=== PATIENT | male | born 1965 | race Caucasian/White ===

== ENCOUNTER 2019-12-11 21:57 | Inpatient (IN) | payer OTHER ==
[~2019-12-11] VITALS: Ht 175.3 cm; Wt 72.5 kg
[~2019-12-11 21:57] MED LIST: ALB5IS NEB; ENO40SY SC; IPR002IS NEB; NICO14DI9 TD
[2019-12-11] MEDS ORDERED: methylPREDNISolone SOD SUCC 125 MG/2 ML VL IV ONE (22:30)
[2019-12-11] MEDS ORDERED: levoFLOXacin 750MG 150 ML IV ONE (22:30)
[2019-12-11] MEDS ORDERED: METOPROLOL TARTRATE 1MG/1ML-5ML VIAL IV SCH (22:45)
[2019-12-11 22:50] LABS: Basophils # (auto) 0.1 10 ^3/uL (0-0.2); Basophils % (auto) 0.6 % (0.0-2.0); Eosinophils # (auto) 0.1 10 ^3/uL (0-0.8); Eosinophils % (auto) 0.6 % (0.0-7.0); Hematocrit 32.9 % (41.0-53.0); Hemoglobin 10.9 g/dL (13.5-17.5); Lymphocytes # (auto) 1.4 10 ^3/uL (0.4-5.4); Lymphocytes % (auto) 9.2 % (10.0-50.0); Mean Corpuscular Hemoglobin 30.9 pg (28.0-32.0); Mean Corpuscular Volume 93.7 fL (80.0-100.0); Monocytes # (auto) 1.2 10 ^3/uL (0-1.3); Monocytes % (auto) 8.1 % (0.0-12.0); Neutrophils # (auto) 12.4 10 ^3/uL (1.6-8.6); Neutrophils % (auto) 81.5 % (37.0-80.0); Platelet Count (auto) 395 10^3/uL (140-450); Red Blood Cells 3.51 10^6/uL (4.5-5.90); Red Cell Distribution Width 12.4 % (11.8-14.3); White Blood Cell 15.2 10^3/uL (4.4-10.8)
[2019-12-11 23:22] LABS: Alanine Aminotransferase 12 U/L (16-61); Albumin 2.5 g/dL (3.4-5.0); Anion Gap 1 (5-15); Aspartate Aminotransferase 40 U/L (15-37); BUN/Creatinine Ratio 14.3; Blood Urea Nitrogen 13 mg/dL (7-18); Calcium 12.6 mg/dL (8.5-10.1); Chloride 88 mmol/L (98-107); GFR African American 112 mL/min; GFR Non-African American 93 mL/min; Glucose 179 mg/dL (74-106); Potassium 3.3 mmol/L (3.5-5.1); Sodium 131 mmol/L (136-145)
[2019-12-11 23:27] LABS: Alkaline Phosphatase 165 U/L (45-117); Bilirubin, Total 0.2 mg/dL (0.2-1.0); Total Protein 10.3 g/dL (6.4-8.2)
[2019-12-11] MEDS ORDERED: LORazepam 2MG/ML-1ML VIAL IV ONE (23:45)
[2019-12-11] MEDS ORDERED: LORazepam 2MG/ML-1ML VIAL ONE (23:46)
[2019-12-12 00:02] LABS: Carbon Dioxide 42 mmol/L (21-32)
[2019-12-12] MEDS ORDERED: LORazepam 2MG/ML-1ML VIAL IV ONE (02:45)
[2019-12-12] MEDS ORDERED: levoFLOXacin 750MG 150 ML IV ONE (04:15)
[2019-12-12] MEDS ORDERED: IPRATROPIUM BROM 0.5 MG/2.5ML INH SOL NEB PRN (05:45)
[2019-12-12] MEDS ORDERED: ONDANSETRON HCL 4 MG/2 ML VIAL IV PRN (05:45)
[2019-12-12] MEDS ORDERED: ALBUTEROL SULF 2.5 MG/0.5ML(0.5%) NEB SOLN NEB PRN (05:45)
[2019-12-12] MEDS ORDERED: HYDROcodone-ACET 5/325MG TAB PO PRN (05:45)
[2019-12-12] MEDS ORDERED: ACETAMINOPHEN 325 MG TAB PO PRN (05:45)
[2019-12-12] MEDS ORDERED: MORPHINE SULFATE 4 MG/ML SYR/VIAL IV PRN (05:45)
[2019-12-12] MEDS ORDERED: DOCUSATE SOD 100 MG CAP PO PRN (05:45)
[2019-12-12] MEDS ORDERED: ALBUTEROL SULF HFA 90MCG INH 200DOSE IN SCH (06:00)
[2019-12-12 06:08] LABS: Basophils # (auto) 0 10 ^3/uL (0-0.2); Basophils % (auto) 0.3 % (0.0-2.0); Eosinophils # (auto) 0 10 ^3/uL (0-0.8); Hematocrit 29.1 % (41.0-53.0); Hemoglobin 9.5 g/dL (13.5-17.5); Lymphocytes # (auto) 0.7 10 ^3/uL (0.4-5.4); Mean Corpuscular Hemoglobin 30.5 pg (28.0-32.0); Mean Corpuscular Hgb Conc. 32.7 g/dL (32.0-36.0); Mean Corpuscular Volume 93.3 fL (80.0-100.0); Monocytes # (auto) 0.1 10 ^3/uL (0-1.3); Monocytes % (auto) 0.6 % (0.0-12.0); Neutrophils % (auto) 94.1 % (37.0-80.0); Platelet Count (auto) 343 10^3/uL (140-450); Red Blood Cells 3.12 10^6/uL (4.5-5.90); Red Cell Distribution Width 12.8 % (11.8-14.3); White Blood Cell 14.9 10^3/uL (4.4-10.8)
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
[2019-12-12 06:22] VITALS: BP 90/55
[2019-12-12] MEDS: SODIUM CHLORIDE 0.9% 1,000 ML IV SCH ×2 (06:28→21:27)
[2019-12-12 06:30] LABS: BUN/Creatinine Ratio 16.1; Calcium 12.2 mg/dL (8.5-10.1); Potassium 3.8 mmol/L (3.5-5.1)
[2019-12-12] MEDS ORDERED: POTASSIUM CHL 20MEQ/100ML 100 ML IV ONE (06:30)
--- NOTE | 2019-12-12 07:00 | NUR ---
PT ASSESSED FOR PRN HHN TX. PT IS ON 3LNC, SPO2 97%, PT SLEEPING AT THIS TIME, NO S.S OF RESPIRATORY DISTRESS. WILL CONTINUE TO MONITOR.
[2019-12-12] MEDS: METOPROLOL TARTRATE 25 MG TAB PO SCH ×2 (10:00→22:00)
[2019-12-12] MEDS: methylPREDNISolone SOD SUCC 125 MG/2 ML VL IV SCH (10:00)
--- NOTE | 2019-12-12 11:00 | NUR ---
FAMILY UPDATED BY PHONE PATIENT ADMITTED TO TELE.
--- NOTE | 2019-12-12 11:17 | NUR ---
ADMISSION ASSESSMENT PATIENT UNABLE TO ANSWER QUESTIONS. ADMISSION ASSESSMENT QUESTIONS ASKED TO MELISSA MONDARGON AT [phone].
[2019-12-12] MEDS ORDERED: HYDR-4833 PO (11:22)
[2019-12-12] MEDS ORDERED: RIS1T PO (11:22)
[2019-12-12] MEDS ORDERED: METO25TA5 PO (11:22)
[2019-12-12] MEDS ORDERED: LORA0.5T12 PO (11:22)
[2019-12-12 12:57] VITALS: BP 88/59
[2019-12-12] MEDS ORDERED: DEXTROSE (50%) 50ML SYRG IV PRN (15:00)
[2019-12-12] MEDS ORDERED: MORPHINE SULF INJ 2 MG/ML SYRINGE 1ML IV PRN (15:00)
--- NOTE | 2019-12-12 15:00 | NUR ---
Lopez catheter insertion Patient assessed and determined to be in need of lopez catheter. Order obtained from MD. Patient educated on catheter and reason for insertion. All questions answered. Lopez catheter 16 Welsh inserted with clean sterile technique. Patient tolerated well.800 CC LIGHT YELLOW URINE DRAINED
--- NOTE | 2019-12-12 16:20 | NUR ---
WOUND CARE NOTE: ORDERED SYNERGY AIR ELITE AIR MATTRESS FOR PATIENT AT THIS TIME. PATIENT TO BE PLACED, PENDING DELIVERY BY LUIS JOSEPH.
[2019-12-12] MEDS: InsuLIN REG 1unit/0.01ml Soln (100units/ml) SC SCH ×2 (17:00→21:27)
[2019-12-12] MEDS: ACCU-CHEK COMFORT CURVE STRIP VI SCH ×2 (17:00→21:27)
[2019-12-12 17:54] VITALS: BP 91/58
[2019-12-12] MEDS: Glucerna Carbsteady SHAKE Vanilla 8oz PO SCH (18:10)
--- NOTE | 2019-12-12 19:30 | NUR ---
Opening Shift Note Assumed care of patient, resting quietly with eyes closed, even and unlabored breathing. Patient awakened easily, no S/S of distress/SOB or pain. Insructed on POC and to callfor assist PRN, will continue to monitor for changes Q1hr and PRN. Fall and safety and seizure precautions in place. Call light within reach.
--- NOTE | 2019-12-12 20:10 | NUR ---
Respiratory note: PT ASSESSED FOR PRN MED NEB TX, HR 100, RR 18, SPO2 94% ON 4L NC. NO SIGNS OF ANY RESPIRATORY DISTRESS NOTED. ADVISED PT TO CALL IF TX IS NEEDED. RT NAME AND PAGER NUMBER WRITTEN ON PT'S BOARD.
[2019-12-12 22:00] VITALS: BP 100/73
--- NOTE | 2019-12-12 22:00 | NUR ---
MEDICATION Scheduled 2200 medication held (see emar). Per day shift RN report, patient's blood pressure runs low. Current blood pressure 100/73. Will continue to monitor
--- NOTE | 2019-12-12 22:00 | NUR ---
URINE Urine sample obtained from lopez catheter and sent to lab via bullet.
[2019-12-12 22:09] LABS: Urine Bacteria NONE SEEN /hpf (None Seen); Urine Blood Negative /uL (Negative); Urine Hyaline Cast FEW /lpf (0 - 2); Urine Mucus FEW (None Seen); Urine Specific Gravity 1.017 (1.001-1.035); Urine WBC 3 /hpf (0 - 3)
[2019-12-13 05:00] VITALS: BP 100/68
[2019-12-13] MEDS: InsuLIN REG 1unit/0.01ml Soln (100units/ml) SC SCH ×4 (06:00→21:58)
[2019-12-13] MEDS ORDERED: levoFLOXacin 500MG 100 ML IV SCH (06:00)
[2019-12-13] MEDS: ACCU-CHEK COMFORT CURVE STRIP VI SCH ×4 (06:00→21:57)
[2019-12-13 06:23] LABS: Basophils # (auto) 0.1 10 ^3/uL (0-0.2); Basophils % (auto) 0.4 % (0.0-2.0); Eosinophils # (auto) 0 10 ^3/uL (0-0.8); Eosinophils % (auto) 0.1 % (0.0-7.0); Hematocrit 29.8 % (41.0-53.0); Hemoglobin 9.9 g/dL (13.5-17.5); Lymphocytes # (auto) 0.9 10 ^3/uL (0.4-5.4); Lymphocytes % (auto) 6.5 % (10.0-50.0); Mean Corpuscular Hemoglobin 31.4 pg (28.0-32.0); Mean Corpuscular Hgb Conc. 33.3 g/dL (32.0-36.0); Mean Corpuscular Volume 94.4 fL (80.0-100.0); Monocytes # (auto) 1.3 10 ^3/uL (0-1.3); Monocytes % (auto) 9.5 % (0.0-12.0); Neutrophils # (auto) 11.4 10 ^3/uL (1.6-8.6); Neutrophils % (auto) 83.5 % (37.0-80.0); Nucleated Red Blood Cells % 0.1 %; Platelet Count (auto) 341 10^3/uL (140-450); Red Blood Cells 3.16 10^6/uL (4.5-5.90); Red Cell Distribution Width 12.5 % (11.8-14.3); White Blood Cell 13.7 10^3/uL (4.4-10.8)
[2019-12-13 06:29] LABS: INR 1.17 (0.9-1.15)
[2019-12-13 06:36] LABS: Calcium 11.7 mg/dL (8.5-10.1); Potassium 3.6 mmol/L (3.5-5.1)
--- NOTE | 2019-12-13 06:43 | NUR ---
CRITICAL Received call from Rizwana in lab, critical CO2 level 44. Will inform day shift RN to inform MD
--- NOTE | 2019-12-13 06:51 | NUR ---
HOSPITALIST Spoke with hospitalist on-call, Dr. Workman. Informed him of critical lab value, CO2 44. No new orders received, will inform day shift RN
[2019-12-13] MEDS: Glucerna Carbsteady SHAKE Vanilla 8oz PO SCH ×3 (08:00→18:02)
--- NOTE | 2019-12-13 08:30 | NUR ---
BREAKFAST PATIENT ABLE TO SELF FEED WITH MODERATE PROMPTING; NO DIFFICULTY CHEWING OR SWALLOWING FOODS; THIN LIQUIDS TOLERATED WELL.
[2019-12-13 09:00] VITALS: BP 85/61
--- NOTE | 2019-12-13 09:50 | NUR ---
UPDATED PHARMACY ON PATIENTS HEIGHT AND WEIGHT.
[2019-12-13] MEDS: METOPROLOL TARTRATE 25 MG TAB PO SCH ×2 (10:00→21:51)
--- NOTE | 2019-12-13 10:00 | NUR ---
Respiratory note: PATIENT ASSESSED FOR PRN MED-NEB TX. MED-NEB NOT INDICATED AT THIS TIME PATIENT IS IN NO ACUTE RESPIRATORY DISTRESS AND DENIES NEED. HE WAS INSTRUCTED TO CALL FOR RT IF HE FELT NEED FOR TX AT A LATER TIME. SPO2 92% 2LPM N/C.
[2019-12-13] MEDS: methylPREDNISolone SOD SUCC 125 MG/2 ML VL IV SCH (10:16)
[2019-12-13] MEDS: levoFLOXacin 750MG 150 ML IV SCH (10:17)
[2019-12-13] MEDS: SODIUM CHLORIDE 0.9% 1,000 ML IV SCH ×2 (10:20→21:57)
[2019-12-13 12:44] VITALS: BP 88/53
[2019-12-13 14:00] VITALS: BP 92/62
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
--- NOTE | 2019-12-13 14:30 | NUR ---
PULMONARY DR SOTO AT BEDSIDE; PATIENT AWAKE AND ALERT; POOR HISTORIAN.
--- NOTE | 2019-12-13 14:41 | NUR ---
NUTRITION CONSULT/ASSESSMENT NOTES Please refer to link notes of nutrition screen form filed under the intervention section of the plan of care for further details. Est. Energy Needs: 7026-4886 kcal (30-35 kcal/kg BW). Est. Protein Needs: 73-88 gms/day ( 1.0-1.2 gms/kg IBW). Will continue to monitor pertinent labs and reassess nutrient need prn Addendum: 12/13/19 at [address] Amended: Links added.
--- NOTE | 2019-12-13 16:26 | NUR ---
DRINKING PATIENT AWAKE ALERT DRINKING GLUCERNA UNASSISTED.WILL CONTINUE TO MONITOR.
--- NOTE | 2019-12-13 17:22 | NUR ---
UPDATED ON POC PATIENTS MELISSA STATED THE PATIENT WILL CONTINUE ON HOSPICE AND STILL WANTS THE MD TO CONTACT HER ON THE PHONE [phone].
--- NOTE | 2019-12-13 18:03 | NUR ---
REFUSED INSULIN PATIENT VERBAL, ALERT AND ORIENTED X 4 ; REFUSED INSULIN STATED " I DONT TAKE IT AT HOME I DONT WANT TO HERE." EDUCATED PATIENT ON THE SAFETY AND IMPORTANCE ON ADHERING TO ALL ORDERS,RECOMMENDATIONS AND MEDICATIONS THE MD ORDERED AND THE RISK OF NOT FOLLOWING. PATIENT VERBALIZED UNDERSTANDING.
--- NOTE | 2019-12-13 19:08 | NUR ---
ENDORSED CARE TO NIGHT RN
[2019-12-13 22:00] VITALS: BP 94/60
[2019-12-14 05:00] VITALS: BP 95/58
[2019-12-14] MEDS: ACCU-CHEK COMFORT CURVE STRIP VI SCH ×4 (05:43→21:12)
[2019-12-14] MEDS: InsuLIN REG 1unit/0.01ml Soln (100units/ml) SC SCH ×4 (05:43→21:18)
[2019-12-14 05:45] LABS: Basophils # (auto) 0 10 ^3/uL (0-0.2); Basophils % (auto) 0.2 % (0.0-2.0); Eosinophils # (auto) 0 10 ^3/uL (0-0.8); Hematocrit 28.2 % (41.0-53.0); Hemoglobin 9.4 g/dL (13.5-17.5); Lymphocytes # (auto) 1.2 10 ^3/uL (0.4-5.4); Lymphocytes % (auto) 8.8 % (10.0-50.0); Mean Corpuscular Hemoglobin 31.6 pg (28.0-32.0); Mean Corpuscular Hgb Conc. 33.4 g/dL (32.0-36.0); Mean Corpuscular Volume 94.6 fL (80.0-100.0); Monocytes # (auto) 0.8 10 ^3/uL (0-1.3); Monocytes % (auto) 6.4 % (0.0-12.0); Neutrophils # (auto) 11.3 10 ^3/uL (1.6-8.6); Neutrophils % (auto) 84.6 % (37.0-80.0); Platelet Count (auto) 303 10^3/uL (140-450); Red Blood Cells 2.98 10^6/uL (4.5-5.90); Red Cell Distribution Width 12.3 % (11.8-14.3); White Blood Cell 13.3 10^3/uL (4.4-10.8)
[2019-12-14 06:00] LABS: Potassium 3.7 mmol/L (3.5-5.1)
[2019-12-14 06:04] LABS: BUN/Creatinine Ratio 45.7; Calcium 10.5 mg/dL (8.5-10.1)
--- NOTE | 2019-12-14 06:09 | NUR ---
CRITICAL Received notice from secondary RN that patient has critical lab value; CO2 of 43. not notified because lab value trending down towards normal. Will inform day shift RN
--- NOTE | 2019-12-14 07:35 | NUR ---
Opening Shift Note Assumed care of patient. Pt is asleep. No S/S of respiratory distress/SOB noted. respirations are regular and non-labored. bed in lower position and locked, bed alarm on, call light within reach. [place] is patent and on bed frame. Pt is on 4 lpm O2 with SpO2 94%. Pt is instructed on POC and to call for assist PRN. Will continue to monitor for changes Q1hr and PRN.
[2019-12-14 08:00] VITALS: BP 91/56
[2019-12-14] MEDS: Glucerna Carbsteady SHAKE Vanilla 8oz PO SCH ×4 (08:50→18:18)
[2019-12-14 09:00] VITALS: BP 91/56
[2019-12-14] MEDS: levoFLOXacin 750MG 150 ML IV SCH (09:45)
[2019-12-14] MEDS: methylPREDNISolone SOD SUCC 125 MG/2 ML VL IV SCH (09:45)
[2019-12-14] MEDS: METOPROLOL TARTRATE 25 MG TAB PO SCH (10:00)
--- NOTE | 2019-12-14 11:45 | NUR ---
ASSESSED PT FOR PRN MED NEB TX, PT ON 2L NC WITH SPO2 94%, HR 85, RR 16, CLEAR BS. NO DISTRESS NOTED NO SOB NOTED. NO INDICATION FOR PRN MED NEB AT THIS TIME. WILL CONTINUE TO MONITOR PT.
[2019-12-14] MEDS: SODIUM CHLORIDE 0.9% 1,000 ML IV SCH ×2 (11:51→13:35)
[2019-12-14 13:00] VITALS: BP 91/54
[2019-12-14] MEDS ORDERED: MORPHINE SULF INJ 2 MG/ML SYRINGE 1ML IV PRN (13:15)
[2019-12-14] MEDS ORDERED: PANTOPRAZOLE 40 MG TAB PO ONE (13:15)
[2019-12-14] MEDS ORDERED: VANCOMYCIN PER PHARMACY 0 MG IV SCH (13:45)
[2019-12-14] MEDS ORDERED: MEROPENEM 1GM IVPB 100 ML IV SCH (14:00)
[2019-12-14] MEDS ORDERED: AZTREONAM 1GM INJ 1 GM in D5W 5% 50 ML IV SCH (14:00)
--- NOTE | 2019-12-14 14:13 | NUR ---
re-assessment Per ss consult resume hospice on discharge. Per patients Fatou patient will resume with [facility]. MD order has been sennt to [facility]. Per Zaina at [facility] servie will resume on discharge. If discharged after hours please call [phone] for transport. Addendum: 12/14/19 at 1415 by Lis Nuno Amended: Links added.
--- NOTE | 2019-12-14 14:26 | NUR ---
IV insertion IV access obtained, via clean sterile technique by inserting 20 gauge catheter at left forearm after 3 attempt(s). IV secured properly. No trauma to site. Patient tolerated procedure well.
[2019-12-14] MEDS ORDERED: VANCOMYCIN 1GM/250ML 250 ML IV SCH (15:00)
[2019-12-14] MEDS ORDERED: IOHEXOL 350 MG/ML 100ML IJ ONE ×2 (15:18→16:10)
[2019-12-14 17:00] VITALS: BP 91/61
[2019-12-14] MEDS: VANCOMYCIN 1GM/250ML 250 ML IV SCH (17:09)
[2019-12-14] MEDS: AZTREONAM 1GM INJ 1 GM in D5W 5% 50 ML IV SCH (18:17)
[2019-12-14] MEDS: methylPREDNISolone SOD SUCC 40 MG/ML VL IV SCH (21:12)
[2019-12-14 21:50] VITALS: BP 99/69
[2019-12-15] MEDS: SODIUM CHLORIDE 0.9% 1,000 ML IV SCH ×3 (00:38→23:14)
[2019-12-15] MEDS: AZTREONAM 1GM INJ 1 GM in D5W 5% 50 ML IV SCH ×3 (01:27→18:01)
[2019-12-15] MEDS: VANCOMYCIN 1GM/250ML 250 ML IV SCH ×3 (03:13→23:14)
[2019-12-15 05:32] VITALS: BP 98/51
[2019-12-15 05:53] LABS: Basophils # (auto) 0 10 ^3/uL (0-0.2); Basophils % (auto) 0.1 % (0.0-2.0); Eosinophils # (auto) 0 10 ^3/uL (0-0.8); Hematocrit 32.2 % (41.0-53.0); Hemoglobin 10.7 g/dL (13.5-17.5); Lymphocytes # (auto) 0.9 10 ^3/uL (0.4-5.4); Lymphocytes % (auto) 6.1 % (10.0-50.0); Mean Corpuscular Hemoglobin 31.3 pg (28.0-32.0); Mean Corpuscular Hgb Conc. 33.1 g/dL (32.0-36.0); Mean Corpuscular Volume 94.4 fL (80.0-100.0); Monocytes # (auto) 0.5 10 ^3/uL (0-1.3); Neutrophils % (auto) 90.8 % (37.0-80.0); Platelet Count (auto) 312 10^3/uL (140-450); Red Blood Cells 3.41 10^6/uL (4.5-5.90); Red Cell Distribution Width 12.6 % (11.8-14.3); White Blood Cell 15.5 10^3/uL (4.4-10.8)
[2019-12-15 06:21] LABS: Potassium 4.1 mmol/L (3.5-5.1)
[2019-12-15] MEDS: ACCU-CHEK COMFORT CURVE STRIP VI SCH ×4 (06:22→21:57)
[2019-12-15] MEDS: InsuLIN REG 1unit/0.01ml Soln (100units/ml) SC SCH ×4 (06:22→21:58)
[2019-12-15 06:32] LABS: BUN/Creatinine Ratio 28.8; Calcium 9.8 mg/dL (8.5-10.1)
[2019-12-15 08:00] VITALS: BP 91/56
--- NOTE | 2019-12-15 08:00 | NUR ---
ASSESSMENT NOTE PT IS ALERT ORIENTED X4, GENERALIS WEAKNESS NOTED, BOONE CATHETER TO GRAVITY, ABLE TO VERBALIS HIS DEMANDS, ENCOURAGE PT TO REPOSITION EVERY 2 HOURS, PAIN 0/10 AT THIS TIME, FALL RISK PRECAUTIONS, CALL LIGHT WITHIN REACH
--- NOTE | 2019-12-15 08:37 | NUR ---
Respiratory note: ASSESSED PT FOR PRN MED NEB TX, PT ON 3L NC WITH SPO2 97%, HR 65, RR 16, CLEAR BS. NO DISTRESS NOTED NO SOB NOTED. NO INDICATION FOR PRN MED NEB AT THIS TIME. WILL CONTINUE TO MONITOR PT.
[2019-12-15 09:00] VITALS: BP 103/66
[2019-12-15] MEDS: PANTOPRAZOLE 40 MG TAB PO SCH (09:12)
[2019-12-15] MEDS: methylPREDNISolone SOD SUCC 40 MG/ML VL IV SCH ×2 (09:12→22:05)
[2019-12-15] MEDS: Glucerna Carbsteady SHAKE Vanilla 8oz PO SCH ×2 (09:13→12:00)
[2019-12-15] MEDS: ENOXAPARIN SOD 40 MG/0.4 ML SYRINGE SC SCH (09:13)
--- NOTE | 2019-12-15 09:49 | NUR ---
DR CHRISTENSEN IS HERE FOLLOWING UP ON PT WITH NEW ORDERS
[2019-12-15 13:00] VITALS: BP 98/60
--- NOTE | 2019-12-15 15:00 | NUR ---
BM PT HAS VERY LARGE SOFT BM IN A BED FUNK, KEPT CLEAN AND DRY
[2019-12-15 17:00] VITALS: BP 100/63
--- NOTE | 2019-12-15 18:08 | NUR ---
PT CONTINUE STABLE, CONTINUE MONITORING
--- NOTE | 2019-12-15 19:10 | NUR ---
OPENING NOTE pt is A&Ox4. respirations are even and nonlabored on 4Lnc. lopez catheter in place, patent and draining to gravity. bed in low locked position, call light within reach.
[2019-12-15 21:38] VITALS: BP 105/68
[2019-12-16] MEDS: AZTREONAM 1GM INJ 1 GM in D5W 5% 50 ML IV SCH (01:23)
[2019-12-16 05:00] VITALS: BP 121/70
[2019-12-16] MEDS: SODIUM CHLORIDE 0.9% 1,000 ML IV SCH ×2 (05:15→16:40)
[2019-12-16 05:59] VITALS: BP 121/70
[2019-12-16 06:17] LABS: Basophils # (auto) 0 10 ^3/uL (0-0.2); Eosinophils # (auto) 0 10 ^3/uL (0-0.8); Hemoglobin 10.5 g/dL (13.5-17.5); Lymphocytes # (auto) 0.8 10 ^3/uL (0.4-5.4); Lymphocytes % (auto) 4.4 % (10.0-50.0); Mean Corpuscular Hemoglobin 31.1 pg (28.0-32.0); Mean Corpuscular Volume 94.5 fL (80.0-100.0); Monocytes # (auto) 0.4 10 ^3/uL (0-1.3); Monocytes % (auto) 2.4 % (0.0-12.0); Neutrophils % (auto) 93.2 % (37.0-80.0); Platelet Count (auto) 345 10^3/uL (140-450); Red Blood Cells 3.39 10^6/uL (4.5-5.90); Red Cell Distribution Width 12.4 % (11.8-14.3); White Blood Cell 18.2 10^3/uL (4.4-10.8)
[2019-12-16] MEDS: ACCU-CHEK COMFORT CURVE STRIP VI SCH ×4 (06:23→21:55)
[2019-12-16] MEDS: InsuLIN REG 1unit/0.01ml Soln (100units/ml) SC SCH ×4 (06:32→21:55)
--- NOTE | 2019-12-16 07:48 | NUR ---
closing note pt resting in semi fowlers with HOB at 30 degrees, no s/s of pain or discomfort.
[2019-12-16 08:00] VITALS: BP_SYST 91; BP_SYST 96; BP_DIAS 56; BP_DIAS 60
--- NOTE | 2019-12-16 09:00 | NUR ---
PT IS VERY ANXIOUS TO GO HOME, SUPPORT GIVEN TO PT
[2019-12-16] MEDS: VANCOMYCIN 1GM/250ML 250 ML IV SCH ×2 (09:18→20:49)
[2019-12-16] MEDS: ENOXAPARIN SOD 40 MG/0.4 ML SYRINGE SC SCH (09:18)
[2019-12-16] MEDS: methylPREDNISolone SOD SUCC 40 MG/ML VL IV SCH (09:19)
[2019-12-16] MEDS: PANTOPRAZOLE 40 MG TAB PO SCH (09:19)
--- NOTE | 2019-12-16 11:20 | NUR ---
DR CHRISTENSEN AT BED SIDE FOLLOWING UP ON PT, EXPLAIN TO PT THE URGENT NEED OF MRI AND WHY, PT VERBALIS UNDERSTANDING STATED I DO NOT NEED MRI, I PREFER TO GO HOME
[2019-12-16] MEDS: MEROPENEM 1GM IVPB 100 ML IV SCH ×2 (11:56→17:59)
[2019-12-16] MEDS: Glucerna Carbsteady SHAKE Vanilla 8oz PO SCH ×3 (11:56→18:01)
[2019-12-16 12:00] VITALS: BP 105/62
--- NOTE | 2019-12-16 16:00 | NUR ---
PATIENT'S CALLED, UPDATE GIVEN TO HER
[2019-12-16 16:56] VITALS: BP 101/57
--- NOTE | 2019-12-16 18:00 | NUR ---
PAGE DR SEARS TO LET HER KNOW ABOUT THE ABG Addendum: 12/16/19 at 1828 by Dariela Collins RN WRONG PT
--- NOTE | 2019-12-16 19:05 | NUR ---
ASSUMED CARE, PT. AWAKE, NO C/O PAIN, NO SOB.
[2019-12-16 21:54] VITALS: BP 104/69
[2019-12-17] MEDS: SODIUM CHLORIDE 0.9% 1,000 ML IV SCH ×2 (01:35→11:15)
[2019-12-17] MEDS: MEROPENEM 1GM IVPB 100 ML IV SCH ×2 (01:38→10:26)
[2019-12-17 04:46] VITALS: BP 115/67
[2019-12-17] MEDS: InsuLIN REG 1unit/0.01ml Soln (100units/ml) SC SCH ×2 (06:00→11:30)
[2019-12-17] MEDS: ACCU-CHEK COMFORT CURVE STRIP VI SCH ×2 (06:01→11:30)
[2019-12-17 06:24] LABS: Basophils # (auto) 0 10 ^3/uL (0-0.2); Basophils % (auto) 0.2 % (0.0-2.0); Eosinophils # (auto) 0.1 10 ^3/uL (0-0.8); Eosinophils % (auto) 0.7 % (0.0-7.0); Hematocrit 33.5 % (41.0-53.0); Hemoglobin 11.1 g/dL (13.5-17.5); Lymphocytes # (auto) 1.1 10 ^3/uL (0.4-5.4); Lymphocytes % (auto) 5.9 % (10.0-50.0); Mean Corpuscular Hemoglobin 31.1 pg (28.0-32.0); Mean Corpuscular Hgb Conc. 33.3 g/dL (32.0-36.0); Mean Corpuscular Volume 93.6 fL (80.0-100.0); Monocytes # (auto) 1.5 10 ^3/uL (0-1.3); Neutrophils # (auto) 15.7 10 ^3/uL (1.6-8.6); Neutrophils % (auto) 85.2 % (37.0-80.0); Platelet Count (auto) 348 10^3/uL (140-450); Red Blood Cells 3.58 10^6/uL (4.5-5.90); Red Cell Distribution Width 12.4 % (11.8-14.3); White Blood Cell 18.4 10^3/uL (4.4-10.8)
[2019-12-17 06:54] LABS: Potassium 4.7 mmol/L (3.5-5.1)
[2019-12-17 07:40] LABS: Calcium 9.6 mg/dL (8.5-10.1)
[2019-12-17 08:00] VITALS: BP_SYST 102; BP_SYST 91; BP_DIAS 56; BP_DIAS 63
[2019-12-17] MEDS: Glucerna Carbsteady SHAKE Vanilla 8oz PO SCH ×2 (08:00→12:00)
[2019-12-17] MEDS: VANCOMYCIN 1GM/250ML 250 ML IV SCH (08:55)
--- NOTE | 2019-12-17 09:30 | NUR ---
BM PT HAS BM IN THE BED FUNK, KEPT DRY AND CLEAN
[2019-12-17] MEDS ORDERED: methylPREDNISolone SOD SUCC 40 MG/ML VL IV SCH (10:00)
[2019-12-17] MEDS ORDERED: predniSONE 20 MG TAB PO SCH (10:00)
[2019-12-17] MEDS: PANTOPRAZOLE 40 MG TAB PO SCH (10:09)
[2019-12-17] MEDS: ENOXAPARIN SOD 40 MG/0.4 ML SYRINGE SC SCH (10:10)
--- NOTE | 2019-12-17 10:20 | NUR ---
DR CHRISTENSEN AT BED SIDE FOLLOWING UP ON PT, WITH DISCHARGE HOME INSTRUCTION, PT VERBALIS UNDERSTANDING
--- NOTE | 2019-12-17 10:25 | NUR ---
DR CHRISTENSEN REMINDED THAT THE PT HAS A BOONE CATHETER DUE TO URINE RETENTION, SAID THAT HOSPICE WILL TAKE CARE OF IT
[2019-12-17] MEDS ORDERED: PANT40TA2 PO (10:40)
[2019-12-17] MEDS ORDERED: DEX4T PO (10:40)
[2019-12-17] MEDS ORDERED: LEVO750T2 PO (10:40)
[2019-12-17] MEDS ORDERED: SACC250C PO (10:40)
--- NOTE | 2019-12-17 11:18 | NUR ---
CALLED PATIENT'S , MADE AWARE THAT PT IS GOING HOME ON HOSPICE TODAY
--- NOTE | 2019-12-17 11:38 | NUR ---
re-assessment Patient is now discharged. Patient agrees to resume with [facility]. Terrence Mahajan at [facility] nurse will meet patient at home this afternoon. Transport has been set up with [employer] for 230pm. Luli ALTMAN has been notified. Patient verbalized understanding and agreed to discharge plan home on hospice. Addendum: 12/17/19 at 1141 by Lis ARAYA Amended: Links added.
[2019-12-17 12:00] VITALS: BP 105/65
[2019-12-17 12:07] VITALS: BP 91/56
--- NOTE | 2019-12-17 13:40 | NUR ---
CALLED PATIENT'S , MADE AWARE OF THE MANAGER FOOD TIME, RX IN THE [facility] TO MANAGER FOOD AND START TODAY, FOLLOW UP APPOINTMENT, VERBALIS UNDERSTANDING, MADE AWARE THAT THERE IS HAND OUT EDUCATION PACKET AND INFORMATION WILL BE SENT WITH HER
--- NOTE | 2019-12-17 15:10 | NUR ---
PT LEFT VIA GURNEY WITH [employer] [facility]SP[facility], OXYGEN 2 L NC, NO DISTRESS NOTED, ALONG WITH HIS BELONGINGS, REVIEW ALL THE DISCHARGE INSTRUCTIONS ONCE AGAIN, VERBALIS UNDERSTANDING
--- NOTE | 2019-12-17 15:11 | NUR ---
Discharge instructions given as ordered. Encourage to follow up with PMD as instructed. All questions and concerns addressed. Patient verbalized understanding. Medication reconciliation form completed and copy given to patient . IV removed with catheter intact, pressure dressing applied, lopez catheter removed. Telemetry unit returned to ICU. Patient taken to vehicle via wheelchair with all personal belongings, accompanied by [employer] STAFF . No distress noted at time of departure.
== END 2019-12-17 15:10 | disposition hospice, home (50) | DRG 720 ==
LOC: EDBD 21:57 → ER 21:57 → TELE 21:58 → TELE-CENTR 12-12 09:49
PROVIDERS: ADMIT Hospitalist; ATTEND Internal Medicine
DX: A41.9 Sepsis, unspecified organism (principal); J96.21 Acute and chronic respiratory failure with hypoxia; G93.41 Metabolic encephalopathy; J90 Pleural effusion, not elsewhere classified; J15.6 Pneumonia due to other Gram-negative bacteria; E44.0 Moderate protein-calorie malnutrition; Z99.81 Dependence on supplemental oxygen; J44.0 Chronic obstructive pulmonary disease with (acute) lower respiratory infection; C34.91 Malignant neoplasm of unspecified part of right bronchus or lung; E87.1 Hypo-osmolality and hyponatremia; E83.52 Hypercalcemia; D63.8 Anemia in other chronic diseases classified elsewhere; J44.1 Chronic obstructive pulmonary disease with (acute) exacerbation; E87.6 Hypokalemia; I10 Essential (primary) hypertension; E11.9 Type 2 diabetes mellitus without complications; F17.210 Nicotine dependence, cigarettes, uncomplicated; Z51.5 Encounter for palliative care; F41.9 Anxiety disorder, unspecified; Z85.830 Personal history of malignant neoplasm of bone; Z82.49 Family history of ischemic heart disease and other diseases of the circulatory system; Z68.23 Body mass index [BMI] 23.0-23.9, adult; Z88.0 Allergy status to penicillin; Z88.2 Allergy status to sulfonamides
CPT/HCPCS: 36415; 70450; 71045; 71275; 80048; 80053; 80202; 81001; 82962; 83036; 83735; 83880; 84443; 84484; 85025; 85610; 87040; 87070; 87205; 93005; 96361; 96365; 96375; 96376; 99291; G0378; J1815; J1956; J2185; J3480; J7060